=== PATIENT | male | born 2000 | race Two or more races ===

== ENCOUNTER 2024-09-19 18:31 | Emergency (ER) | payer BC, OTHER ==
[~2024-09-19] VITALS: Ht 180.3 cm; Wt 109.0 kg
[2024-09-19 18:48] VITALS: BP 149/89; PULSE 84; RESP 18; TEMP 99.1; O2SAT 99
== END 2024-09-19 19:44 | disposition left against medical advice (07) ==
LOC: ER 18:31
DX: S61.210A Laceration without foreign body of right index finger without damage to nail, initial encounter (principal); Z53.21 Procedure and treatment not carried out due to patient leaving prior to being seen by health care provider; X58.XXXA Exposure to other specified factors, initial encounter; Y93.89 Activity, other specified; Y92.89 Other specified places as the place of occurrence of the external cause; Y99.8 Other external cause status